=== PATIENT | female | born 1985 | race American Indian/Alaskan Native ===

== ENCOUNTER 2017-04-03 01:57 | Emergency (ER) | payer SELFPAY ==
[~2017-04-03] VITALS: Ht 162.6 cm; Wt 101.0 kg
[2017-04-03 02:03] VITALS: BP 116/75
== END 2017-04-03 03:55 | disposition left against medical advice (07) ==
LOC: ED 03:30
DX: S00.10XA Contusion of unspecified eyelid and periocular area, initial encounter (principal); S09.90XA Unspecified injury of head, initial encounter; Y04.0XXA Assault by unarmed brawl or fight, initial encounter
CPT/HCPCS: 70450; 70486; 99284